=== PATIENT | female | born 1950 | race Caucasian/White ===

== ENCOUNTER 2023-10-07 10:45 | Outpatient (RCR) | payer MEDICARE, BC, SELFPAY | END 2023-11-27 13:29 | disposition home or self-care (01) | PROVIDERS: Visit Provider Physician Assistant | DX: M54.2 Cervicalgia (principal); G89.29 Other chronic pain; Z51.89 Encounter for other specified aftercare | CPT/HCPCS: 97110; 97140; 97161 ==

== ENCOUNTER 2024-05-24 10:16 | Outpatient (RCR) | payer MEDICARE, BC, SELFPAY | END 2024-09-21 23:59 | disposition home or self-care (01) | PROVIDERS: PCP Family Medicine; Visit Provider Family Medicine | DX: H81.13 Benign paroxysmal vertigo, bilateral (principal); M54.2 Cervicalgia; Z51.89 Encounter for other specified aftercare; R26.9 Unspecified abnormalities of gait and mobility ==

== ENCOUNTER 2024-06-11 10:45 | Outpatient (RCR) | payer MEDICARE, BC, SELFPAY | END 2024-08-17 09:35 | disposition home or self-care (01) | PROVIDERS: Visit Provider Physician Assistant | DX: H81.13 Benign paroxysmal vertigo, bilateral (principal); R26.89 Other abnormalities of gait and mobility; Z51.89 Encounter for other specified aftercare | CPT/HCPCS: 97112; 97140; 97162 ==